=== PATIENT | male | born 1950 | race Caucasian/White ===

== ENCOUNTER 2016-06-05 13:12 | Outpatient (CLI) | payer MEDICARE, MEDICAID ==
[2015-09-27 22:23] VITALS: BP 124/77
[~2016-06-05 13:12] MED LIST: 0.9 % SODIUM CHLORIDE PF 10 ML VIAL IJ ONE; Lidocaine 1% 5ml(IM or SUTURE)(PAIN CLINIC) ONE; TRIAMCINOLONE ACETONID 40MG/ML VIAL ONE
--- NOTE | 2016-06-06 11:44 | HISTORY AND PHYSICAL REPORT ---
REFERRING PHYSICIAN: Dr. Ambrose Zelaya Dear Ambrose: HISTORY OF PRESENT ILLNESS: I had the opportunity of seeing Ivan Vega today as an outpatient at [facility]. Jose is a very nice 65-year-old white male with a greater than a 2-year history of left upper extremity pain and since March, the pain has become daily, severe, significant, and consistent with left-sided parascapular pain and then tingling and numbness which radiates into the 4th and 5th digit on the left hand on the C8 dermatomal distribution. He denies pain on the right side. He says that these symptoms are severe and significant and involve the entire left upper extremity and can be as severe as 10 over 10 on the visual analog scale. He has been taking tramadol for pain control. 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 His cervical MRI which was done on May 04 reveals severe degenerative disease and reversal of curvature of the cervical spine. There is a fusion between the C3-C4 and C5-C6 disk spaces with a C4-C5 disk protrusion. He has a grade 1 to 2 spondylolisthesis of C7-T1 and has stenosis at multiple levels of the cervical spine, most severe at C7-T1, which is consistent with his symptoms. PAST MEDICAL HISTORY: 1. History of vision problems. 2. Bruising easily. 3. Depression. 4. Anxiety. 5. Bipolar disorder. 6. BPH. PAST SURGICAL HISTORY: 1. Right total hip replacement in March 2016. 2. Cataracts removed and bilateral lens implanted. CURRENT DAILY MEDICATIONS: 1. Acyclovir 400 mg b.i.d. 2. Atorvastatin 20 mg daily. 3. Vitamin B1, 100 mg daily. 4. Celebrex daily. 5. Diclofenac 75 mg 2 daily p.r.n. 6. Duloxetine 60 mg once daily. 7. Epi-Pen p.r.n. 8. Hydroxyzine 25 mg b.i.d. 9. Lamictal 100 mg b.i.d. in conjunction with Lamictal 25 mg b.i.d. 10. Loratadine 10 mg p.r.n. 11. Primidone 50 mg b.i.d. 12. Propranolol 10 mg b.i.d. 13. Tramadol 50 mg p.r.n. ALLERGIES: He has no known drug allergies. SOCIAL HISTORY: He currently chews tobacco. He has a history of alcoholism. He quit drinking 10 years ago. He denies recreational drug use. He has been for the past 6 years. He has 2 children. He lives at home with his . He completed the 12th grade. He is currently employed. 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 He is currently disabled. FAMILY HISTORY: Father with liver cancer. REVIEW OF SYSTEMS: In the past month or so, he reports an irregular fast heartbeat, urinary incontinence, cough or cold, feeling anxious. Pain is worse with bending, sitting, cold, heat, driving, and touch. Pain is improved with lying down and standing. PHYSICAL EXAMINATION: General: This is a well-nourished, well-developed white male in no apparent distress. Vital Signs: BP: 110/70, P: 60, R: 20, oxygen saturation 98% on room air. HEENT: Pupils are equal, round, and reactive to light and accommodation. Extraocular movements intact. No facial droop. Neck: There is full range of motion of the cervical spine. No evidence of adenopathy. Thyroid is nontender, no enlarged. Carotids are without bruits. Chest: Clear to auscultation bilaterally. Normal. Chest excursion. Heart: Regular rate and rhythm without murmur. Abdomen: Benign. Normoactive bowel sounds. Motor/sensory: Intact in the upper and lower extremities. Moves all extremities freely. Strength is 5/5 and equal in the left biceps and triceps distribution. There is some mild weakness of senior communications engineer strength in the left arm as opposed to the right. Biceps tendon and triceps tendon and brachioradialis tendon and refluxes are all 2+ and equal. Back: There are normal cervical, thoracic and lumbar curvatures. There are negative sacroiliac joint findings bilaterally. No evidence of pain or tenderness over the facet joints. Negative piriformis bilaterally. Negative straight leg raise. No evidence of dermatomal weakness or numbness in the lower extremities. Bilateral negative femoral nerve stretch. Patellar tendons are 2+ and equal bilaterally. ASSESSMENT: Cervical radiculitis over C8 dermatomal distribution consistent with C7-T1 grade 1 to 2 spondylolisthesis and stenosis. PLAN: Plan today for T1-T2 thoracic epidural steroid injection under fluoroscopy. cc: Dr. Ambrose ARAUJO
--- NOTE | 2016-06-07 10:11 | THORACIC ESI FLUORO ---
NAME OF PROCEDURE: Left T1-T2 thoracic epidural steroid injection under fluoroscopic guidance. DESCRIPTION OF PROCEDURE: The risks and benefits were discussed with the patient including the risk of infection, bleeding, nerve injury, and headache, as well as the risks of steroid exposure causing hyperglycemia, hypertension, osteoporosis, or increased infectious risks. The patient understood these risks and agreed to proceed. Consent was obtained prior to the procedure. The patient was placed in the prone position on the fluoroscopy table with a pillow underneath the abdomen to afford anterior flexion of the thoracic spine. The low back was cleaned. A sterile drape was applied. An 18 gauge thin wall Tuohy epidural needle was advanced with normal saline loss of resistance technique and direct fluoroscopic guidance with a left paramedian approach at the T1-T2 level. On obtaining loss of resistance to normal saline, it was verified that there was no aspiration of CSF or blood. Furthermore, the needle tip location was verified with lateral and AP fluoroscopic views. Omnipaque 240 myelogram dye were injected through the epidural needle. The distribution of the dye was noted to be within the desired distribution within the thoracic epidural space. Triamcinolone acetate and 1% lidocaine was injected into the epidural space. The stylet was replaced in the needle and the needle was removed from the back. The patient tolerated the procedure well. The back was cleaned and a bandage was applied over the injection site. The patient was monitored for 20 minutes following the procedure. during this time the vital signs remained stable and the patient experienced no adverse sequelae. The patient was discharged in good condition. ASSESSMENT: Thoracic radiculitis. PLAN: Left T1-T2 thoracic epidural steroid injection under fluoroscopic guidance today. FOLLOW UP: He will follow up in 1 month. cc: Dr. Ambrose ARAUJO
== END 2016-06-05 13:15 ==
LOC: OUT 13:12
PROVIDERS: ATTEND Anesthesiology Pain Medicine
DX: M54.14 Radiculopathy, thoracic region (principal)
CPT/HCPCS: 99214; G0463; J3301; Q9966

== ENCOUNTER 2016-06-10 12:03 | Emergency (ER) | payer MEDICARE, MEDICAID ==
[2016-06-10 12:19] VITALS: BP 160/91
--- NOTE | 2016-06-10 13:13 | ED Physician Documentation ---
Skin Rash - HPI Stated Complaint: abcess right thigh Chief Complaint: Lower Extremity Problem Onset: days ago (3 days) Timing: still present Duration: worse Location: RLE (anterior lateral thigh) Quality: itchy Identified Cause?: No Further Comments: yes (patient developed a erythematous lesion to the thigh. no insect bite that he is aware of.) - ROS CONST: denies: fever, chills - PAST HX Past History: other (depression) Other History: none Surgeries/Procedures: No Immunizations: referred to PCP Allergies/Adverse Reactions: Allergies Allergy/AdvReac Type Severity Reaction Status Date / Time No Known Allergies Allergy Verified 06/10/16 12:13 Home Medications: Ambulatory Orders Medication Instructions Recorded Duloxetine HCl [Cymbalta] 2 tab PO D 08/14/15 Ondansetron HCl Rapdis [Zofran Odt] 4 mg PO Q6H PRN #10 tab.rapdis 09/27/15 Doxycycline Monohydrate [Mondoxyne 100 mg PO BID #14 capsule 06/10/16 Nl] - SOCIAL HX Smoking History: chew (1 can a day) Alcohol Use: none Drug Use: none - FAMILY HX Family History: none - VITAL SIGNS Vital Signs: Vital Signs Temp Pulse Resp BP Pulse Ox 98.4 F 77 18 160/91 97 06/10/16 13:35 06/10/16 13:35 06/10/16 13:35 06/10/16 13:35 06/10/16 13:35 - REVIEWED ASSESSMENTS Nursing Assessment Reviewed: Yes Vitals Reviewed: Yes Skin Rash Physical Exam - EXAM General Appearance: no acute distress, alert Skin: warm,dry, other (5cm area of erythema to the mid thigh with raised tender area of about 1 cm, nonflucuant) Symptoms: warmth, tenderness, swelling. No: lymphangitis Respiratory: no resp distress, chest non-tender, breath sounds normal. No: wheezes, rales, rhonchi CVS: reg. rate & rhythm, heart sounds nml Abdomen: non-tender, no organomegaly, nml bowel sounds, no distention Neuro/Psych: oriented x3, mood/affect nml Discharge Clincal Impression: Cellulitis, leg Qualifiers: Laterality: right Qualified Code(s): L03.115 - Cellulitis of right lower limb Prescriptions: Doxycycline Monohydrate [Mondoxyne Nl] 100 mg PO BID #14 capsule Referrals: Chuck Rice MD [Primary Care Provider] - 2 Days Additional Instructions: Use a warm compress to the area, take doxycycline twice a day for one week. Watch for a fever or chills. If symptoms get worse to return to the clinic for further treatment. Home Medications: Ambulatory Orders Duloxetine HCl [Cymbalta] 2 tab PO D 08/14/15 Ondansetron HCl Rapdis [Zofran Odt] 4 mg PO Q6H PRN #10 tab.rapdis 09/27/15 Doxycycline Monohydrate [Mondoxyne Nl] 100 mg PO BID #14 capsule 06/10/16 Condition: Stable Disposition: HOME, SELF-CARE Decision to Admit: NO Date of Decison to Admit: 06/10/16 Decision Time: 13:13
== END 2016-06-10 13:34 | disposition home or self-care (01) ==
LOC: ED 12:03
DX: L03.115 Cellulitis of right lower limb (principal); F17.220 Nicotine dependence, chewing tobacco, uncomplicated
CPT/HCPCS: 99283; 99284

== ENCOUNTER 2016-06-29 10:14 | Emergency (ER) | payer MEDICARE, OTHER ==
--- NOTE | 2016-06-29 10:23 | ED Physician Documentation ---
Neuro Symptoms - HISTORIAN Historian: patient, other (toddler caregiver) - HPI Chief Complaint: Neurological Deficits Last known Well Date: 06/29/16 Last Known Well Time: 09:45 Last known Well Code/Unknown Code: Known Severity: moderate Further Comments: yes (65 year old patient presents with left facial droop - see progress note) - CHARACTERS OF DEFICIT New Weakness: Lt facial Altered Sensation: Lt facial Decreased Ability: none Cognition is Usually: alert, oriented x3 Gait is Usually: walks w/o assistance Associated Symptoms: none - ROS MENTAL STATUS: none CVS/Resp Upper Extremity Problem: none GI/ DYSPNEA: none MS/SKIN/LYMPH: none Neuro/Psych: none - PAST HX Past History: other (CAD, CHF, HTN, AMI, HLD, ) Allergies/Adverse Reactions: Allergies Allergy/AdvReac Type Severity Reaction Status Date / Time No Known Allergies Allergy Verified 06/10/16 12:13 Home Medications: Ambulatory Orders Medication Instructions Recorded Duloxetine HCl [Cymbalta] 2 tab PO D 08/14/15 Ondansetron HCl Rapdis [Zofran Odt] 4 mg PO Q6H PRN #10 tab.rapdis 09/27/15 Doxycycline Monohydrate [Mondoxyne 100 mg PO BID #14 capsule 06/10/16 ] - FAMILY HX Family History: denies: none - SOCIAL HX Smoking History: non-smoker - VITAL SIGNS Vital Signs: Vital Signs Temp Pulse Resp BP Pulse Ox 77 160/91 99 06/29/16 10:47 06/10/16 13:35 06/29/16 10:47 - REVIEWED ASSESSMENTS Nursing Assessment Reviewed: Yes Vitals Reviewed: Yes Progress - Progress Progress: 65 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 Patient states he was at work and a co-worked noticed the facial droop at break at 0945. contacted and states patient was fine when he left for work at 0700- 0730. Patient rode bus to [employer] work shop. NIH score 3 Patient ate breakfast at 0945 [facility] in [place] [address] Reyes at [place], consulted for possible TPA treatment. Orders to transfer NOW for re-evaluation in the ER and possible intervention. - EKG/XRAY/CT EKG: rhythm (SR, rate 77) ED Results Lab/Radiology - Lab Results Lab Results: Lab Results 06/29/16 06/29/16 06/29/16 10:20 10:20 10:20 WBC 6.10 K/ul K/ul (4.00-12.00) RBC 4.82 M/ul M/ul (3.90-5.20) Hgb 14.6 g/dL g/dL (12.0-18.0) Hct 43.7 % % (37.0-53.0) MCV 90.6 fl fl (80.0-100.0) MCH 30.2 pg pg (28.0-34.0) MCHC 33.3 g/dL g/dL (30.0-36.0) RDW 14.6 % H % (11.3-14.3) Plt Count 293 K/mm3 K/mm3 (130-400) Neut % (Auto) 53.8 % % (39.0-79.0) Lymph % (Auto) 37.4 % % (16.0-50.0) [place] % (Auto) 2.4 % % (0.0-11.0) Eos % (Auto) 4.3 % % (0.0-6.8) Baso % (Auto) 0.5 (0.0-1.5) Neut # 3.3 # k/uL # k/uL (1.4-7.7) Lymph # 2.3 # k/uL # k/uL (0.6-4.0) [place] # 0.2 # k/uL # k/uL (0.0-0.9) Eos # 0.3 # k/uL # k/uL (0.0-0.6) Baso # 0.0 # k/uL # k/uL (0.0-0.5) Reactive Lymphs % 1.6 % % (0.0-5.0) Reactive Lymphs # 0.1 # k/uL # k/uL (0.0-0.8) PT 10.0 Seconds Seconds (9.7-11.5) INR 0.9 (0.9-1.1) APTT 25.2 Seconds Seconds (24.5-32.8) Sodium 138 mmol/L mmol/L (136-145) Potassium 4.1 mmol/L mmol/L (3.5-5.0) Chloride 103 mmol/L mmol/L (98-110) Carbon Dioxide 32 mmol/L mmol/L (20-32) BUN 22 mg/dL mg/dL (10-26) Creatinine 1.1 mg/dL mg/dL (0.4-1.5) Estimated Creat Clear 83 Est GFR ( Amer) > 60 (60 - ) Est GFR (Non-Af Amer) > 60 (60 - ) Glucose 146 mg/dL H mg/dL (70-99) Calcium 9.4 mg/dL mg/dL (8.5-10.5) Total Bilirubin 0.4 mg/dL mg/dL (0.2-1.2) AST 23 U/L U/L (0-41) ALT 30 U/L U/L (0-45) Alkaline Phosphatase 119 U/L H U/L (46-116) Creatine Kinase 95 U/L U/L (0-225) Total Protein 7.2 g/dL g/dL (6.0-8.5) Albumin 4.3 g/dL g/dL (3.0-5.5) - Radiology Radiology Impressions: CT brain noncontrast CLINICAL HISTORY: LEFT FACIAL DROOP (Hx) / LEFT FACIAL DROOP (DICOM Hx) TECHNIQUE: 5 mm contiguous axial images of the brain, noncontrast. FINDINGS: There is no evidence of intracranial mass effect, hemorrhage, or acute hydrocephalus. The lateral ventricles are symmetrical and the 4th ventricle is midline without shift. No acute brain parenchymal changes or extra-axial fluid collections are identified. The posterior fossa contents are within normal limits. The calvarium is intact. IMPRESSION: No acute intracranial process. - Orders Orders: ED Orders Category Date Time Status Continuous EKG monitoring Q30M Care 06/29/16 10:17 Active Continuous Pulse Oximetry Q30M Care 06/29/16 10:[address] Saline Lock/IV NOW Care 06/29/16 10:[address] BRAIN W/O CONTRAST Stat Exams 06/29/16 Ordered CBC/PLATELET/DIFF Stat Lab 06/29/16 10:20 Completed CMP Stat Lab 06/29/16 10:20 Completed CREATINE KINASE Stat Lab 06/29/16 10:20 Completed PT-INR Stat Lab 06/29/16 10:20 Completed PTT Stat Lab 06/29/16 10:20 Completed UA W/MICRO IF INDICATED Stat Lab 06/29/16 10:17 Ordered Oxygen Daily Oxygen 06/29/16 10:30 Ordered EKG WITH COMPARISON Stat Ther 06/29/16 10:17 Ordered Neuro Symptoms Physical Exam - Physical Exam General Appearance: moderate distress HEENT: no apparent trauma, EOM's intact, PERRL, ENT inspection nml, pharynx nml , airway intact, oral exam nml Neuro/Psych: alert, mood/affect nml, other (left facial droop, NIH score 3, tongue deviation to right; oriented to person and place) Cranial Nerves: facial palsy (left) Cerebellar: nml as tested, nml gait Pheripheral Exam: motor nml, sensation nml, reflexes nml Neck: normal inspection Respiratory: no resp distress, chest non-tender, breath sounds normal CVS: reg rate & rhythm, heart sounds normal, equal pulses, no murmur, no gallop , PMI nml, no JVD, no friction rub, 24 Abdomen: non-tender, no distention, no organomegaly Skin: color nml, no rash, nml palp., dry Extremities: non-tender, normal range of motion, no evidence of injury, no edema , J, AIRCRAFT REFUELER Discharge Clincal Impression: Stroke Qualifiers: CVA mechanism: unspecified Qualified Code(s): I63.9 - Cerebral infarction, unspecified Home Medications: Ambulatory Orders Duloxetine HCl [Cymbalta] 2 tab PO D 08/14/15 Ondansetron HCl Rapdis [Zofran Odt] 4 mg PO Q6H PRN #10 tab.rapdis 09/27/15 Doxycycline Monohydrate [Mondoxyne Nl] 100 mg PO BID #14 capsule 06/10/16 Condition: Critical Disposition: 02 XFER SHT-TRM HOSP Decision to Admit: NO Decision Time: 11:01
[2016-06-29 10:24] LABS: BASOPHILS % 0.5 (0.0-1.5); EOSINOPHILS % 4.3 % (0.0-6.8); LYMPHOCYTES # 2.3 # k/uL (0.6-4.0); MEAN CORPUSCULAR HEMOGLOBIN 30.2 pg (28.0-34.0); MONOCYTES # 0.2 # k/uL (0.0-0.9); MONOCYTES % 2.4 % (0.0-11.0); NEUTROPHILS # 3.3 # k/uL (1.4-7.7)
[2016-06-29] MEDS ORDERED: 0.9 % SODIUM CHLORIDE 1,000 ML IV SCH (10:45)
[2016-06-29 10:46] LABS: eGFR (African) > 60; eGFR (Non-African) > 60
[2016-06-29] MEDS ORDERED: 0.9 % SODIUM CHLORIDE 1,000 ML IV ONE (10:56)
[2016-06-29 11:09] VITALS: BP 135/83
--- NOTE | 2016-06-29 18:14 | Diagnostic Imaging Report ---
[facility] [address] [facility] [address] [address] Report Submission Date: Jun 29, 2016 10:44:33 AM AGENT SPA DESK Patient Study Name: ROSETTA MACKEY Date: Jun 29, 2016 10:19:07 AM AGENT SPA DESK Modality Type: CT\SR Gender: M Description: CT BRAIN W/O CONTRAST : 54 Institution: [facility] Physician KIKE KYLE (SNOWBOARDER) - ER CT brain noncontrast CLINICAL HISTORY: LEFT FACIAL DROOP (Hx) / LEFT FACIAL DROOP (DICOM Hx) TECHNIQUE: 5 mm contiguous axial images of the brain, noncontrast. FINDINGS: There is no evidence of intracranial mass effect, hemorrhage, or acute hydrocephalus. The lateral ventricles are symmetrical and the 4th ventricle is midline without shift. No acute brain parenchymal changes or extra-axial fluid collections are identified. The posterior fossa contents are within normal limits. The calvarium is intact. IMPRESSION: No acute intracranial process. Electronically signed on Jun 29, 2016 10:44:33 AM AGENT SPA DESK by: Dejon ARAUJO
== END 2016-06-29 11:00 | disposition short-term general hospital (02) ==
LOC: ED 10:14
DX: I63.9 Cerebral infarction, unspecified (principal)
CPT/HCPCS: 70450; 80053; 82550; 85025; 85610; 85730; J7030; 96360; 99283; S1016

== ENCOUNTER 2016-07-10 12:34 | Outpatient (CLI) | payer MEDICARE, OTHER ==
--- NOTE | 2016-07-11 09:06 | PAIN CLINIC PROGRESS NOTES ---
REFERRING PHYSICIAN: Dr. Chuck Rice REASON FOR VISIT: Mr. Vega follows up with me status post a cervical ДМИТРИЙ for left upper extremity radiculitis. He says that his symptoms have completely resolved. He still has some tingling in his fingers. He denies pain, numbness, or weakness in his arm, forearm, wrist, or hand. He has no limitations. PLAN: At this point, I have recommended that he stay on the nonsteroidal antiinflammatory and I will follow him up if his symptoms should worsen or reoccur. Thank you very much for allowing me to take part in the care of this nice gentleman. cc: Dr. Chuck ARAUJO
== END 2016-07-10 12:35 ==
LOC: OUT 12:34
PROVIDERS: ATTEND Anesthesiology Pain Medicine
DX: M54.12 Radiculopathy, cervical region (principal)
CPT/HCPCS: 99214; G0463

== ENCOUNTER 2016-07-20 19:49 | Emergency (ER) | payer MEDICARE, OTHER ==
[2016-07-20] MEDS: Lidocaine 1% 5ml(IM or SUTURE)(PAIN CLINIC) IJ ONE (20:22)
[2016-07-20] MEDS: cefTRIAXone SODIUM 1 GM VIAL IM ONE (20:22)
--- NOTE | 2016-07-20 20:37 | ED Physician Documentation ---
Skin Rash - HISTORIAN Historian: patient - HPI Stated Complaint: knots under R arm Chief Complaint: Skin Rash Additional Information: knots popped up under right axilla over last 24 hours Front/Back of Body, Lg (Martin): 1 - 2 carbuncles Onset: days ago (1) Timing: still present Duration: worse Location: R axillary Quality: painful Identified Cause?: No Where: home Context: Medication Exposure: none Context: Food Exposure: none Context: Other Exposure: denies: bee sting, wasp sting, ant bite, spider bite, poison karine, poison oak, infectious illness, soap Further Comments: no - ROS CONST: none CVS/RESP: none EYES/ENT: none GI/: none MS/SKIN/LYMPH: none NEURO/PSYCH: none - PAST HX Past History: hypertension Other History: other (ortho) Surgeries/Procedures: No Immunizations: referred to PCP Allergies/Adverse Reactions: Allergies Allergy/AdvReac Type Severity Reaction Status Date / Time No Known Allergies Allergy Verified 07/20/16 20:05 Home Medications: Ambulatory Orders Medication Instructions Recorded Duloxetine HCl [Cymbalta] 2 tab PO D 08/14/15 Ondansetron HCl Rapdis [Zofran Odt] 4 mg PO Q6H PRN #10 tab.rapdis 09/27/15 Doxycycline Monohydrate [Mondoxyne 100 mg PO BID #14 capsule 06/10/16 ] - SOCIAL HX Smoking History: cigarettes Alcohol Use: none Drug Use: none - FAMILY HX Family History: none - VITAL SIGNS Vital Signs: Vital Signs Temp Pulse Resp BP Pulse Ox 98.4 F 80 18 135/83 98 07/20/16 20:34 07/20/16 20:34 07/20/16 20:34 06/29/16 11:00 07/20/16 20:34 - REVIEWED ASSESSMENTS Nursing Assessment Reviewed: Yes Vitals Reviewed: Yes Progress - Results/Orders Results/Orders: no testing ordered - Progress Progress: pt. given 1 gram rocephin im in er Critical Care Note - Critical Care Note Total Time (mins): 0 ED Results Lab/Radiology - Lab Results Lab Results: none ordered - Radiology Radiology Impressions: none ordered - Orders Orders: ED Orders Category Date Time Status Lidocaine 1% 5ml(IM or SUTURE) [Xylocaine] Med 07/20/16 20:20 Once 50 mg IJ NOW ONE cefTRIAXone SODIUM [Rocephin] Med 07/20/16 20:20 Once 1 gm IM NOW ONE Skin Rash Physical Exam - EXAM General Appearance: alert, mild distress Skin: warm,dry, other (2 carbuncles in right axilla) Location: other (right axilla) Character: papular Symptoms: warmth, tenderness Extremities: non-tender, nml ROM EENT: eyes nml inspection, lips nml, gums nml, pharynx nml Neck: trachea midline, no swelling Respiratory: no resp distress, chest non-tender, breath sounds normal CVS: reg. rate & rhythm, heart sounds nml Abdomen: non-tender, no organomegaly, nml bowel sounds, no distention Neuro/Psych: oriented x3, CN's nml as tested, motor nml, sensation nml, mood/ affect nml Discharge Clincal Impression: Carbuncle Referrals: Chuck Rice MD [Primary Care Provider] - 2 Days Home Medications: Ambulatory Orders Duloxetine HCl [Cymbalta] 2 tab PO D 08/14/15 Ondansetron HCl Rapdis [Zofran Odt] 4 mg PO Q6H PRN #10 tab.rapdis 09/27/15 Doxycycline Monohydrate [Mondoxyne Nl] 100 mg PO BID #14 capsule 06/10/16 Comments: discharged with scripts for prednisone taper 60 mg - 10 mg over 6 days, Bactrim DS 1 p.o. bid #20 Condition: Stable Disposition: 01 HOME, SELF-CARE Decision to Admit: NO Decision Time: 20:30
== END 2016-07-20 20:29 | disposition home or self-care (01) ==
LOC: ED 19:49
DX: L02.233 Carbuncle of chest wall (principal)
CPT/HCPCS: 96372; 99283; J0696

== ENCOUNTER 2016-10-18 13:53 | Outpatient (CLI) | payer MEDICARE, OTHER ==
[2016-10-18 14:24] LABS: APPEARANCE,URINE Clear (CLEAR); COLOR,URINE Yellow (YELLOW); OCCULT BLOOD,URINE Negative (NEGATIVE)
--- NOTE | 2016-10-18 14:48 | Diagnostic Imaging Report ---
MIKE HARRIS [facility] [address] [facility].[address] [address] Report Submission Date: Oct 18, 2016 2:30:35 PM CDT Patient Study Name: ROSETTA MACKEY Date: Oct 18, 2016 2:00:34 PM CDT Modality Type: CR Gender: M Description: SPINE : 54 Institution: [facility] Physician: MIKE HARRIS Examination: Plain film lumbar spine History: Back discomfort Findings: 3 views of the lumbar spine demonstrates reversal of the normal curvature. No anterior compression. Anterior and lateral osteophyte formation. Disc space narrowing. Curvature to the left on the anterior posterior film. No prevertebral regularity. Impression: Extensive degenerative changes. No compression fracture. Electronically signed on Oct 18, 2016 2:30:35 PM CDT by: Mark ARAUJO
== END 2016-10-18 13:54 ==
LOC: RAD 13:53
PROVIDERS: ATTEND Family Medicine
DX: M54.5 Low back pain (principal); S30.1XXA Contusion of abdominal wall, initial encounter
CPT/HCPCS: 72100; 81002

== ENCOUNTER 2017-01-03 09:49 | Outpatient (CLI) | payer OTHER ==
[2017-01-03 10:08] LABS: BASOPHILS % 0.8 (0.0-1.5); EOSINOPHILS % 7.5 % (0.0-6.8); MEAN CORPUSCULAR HEMOGLOBIN 31.9 pg (28.0-34.0); MEAN CORPUSCULAR VOLUME 91.8 fl (80.0-100.0); MONOCYTES % 4.4 % (0.0-11.0); NEUTROPHILS # 4.8 # k/uL (1.4-7.7)
[2017-01-03 10:33] LABS: eGFR (African) > 60; eGFR (Non-African) > 60
== END 2017-01-03 09:50 ==
LOC: LAB 09:49
PROVIDERS: ATTEND Family Medicine
DX: I10 Essential (primary) hypertension (principal); R41.3 Other amnesia; Z79.899 Other long term (current) drug therapy
CPT/HCPCS: 36415; 80053; 80171; 82607; 82746; 84443; 85025

== ENCOUNTER 2017-01-04 17:07 | Outpatient (CLI) | payer MEDICARE, OTHER | END 2017-01-04 17:10 | LOC: LAB 17:07 | PROVIDERS: ATTEND Physician Assistant | DX: R07.9 Chest pain, unspecified (principal) | CPT/HCPCS: 36415; 84484 ==

== ENCOUNTER 2017-01-23 13:50 | Emergency (ER) | payer SELFPAY ==
--- NOTE | 2017-01-23 14:11 | ED Physician Documentation ---
Altered Mental Status - HISTORIAN Historian: patient, other (family friend ) - HPI Stated Complaint: fall Chief Complaint: Fall Onset: other (few months has been falling more than normal ) Duration: other (no symptoms before falls ) Last known Well Date: 01/23/17 Last Known Well Time: 13:00 Last known Well Code/Unknown Code: Unknown (he fell today at 1300 and hit his head ) Character of Altered Mental Status: none Context: none Cognition is Usually: alert, oriented x3 Gait is Usually: walks w/o assistance Associated Symptoms: none Further Comments: no - ROS EYES/ENT: none CVS/RESP: none GI/: none MS/SKIN/LYMPH: none - PAST HX Past History: none Other History: none Surgeries/Procedures: none - SOCIAL HX Smoking History: cigarettes Alcohol Use: none Drug Use: none - FAMILY HX Family History: none - REVIEWED ASSESSMENTS Nursing Assessment Reviewed: Yes Vitals Reviewed: Yes <Krysten Castro - Last Filed: 01/23/17 15:47> - SOCIAL HX Smoking History: chew <Chuck Rice - Last Filed: 01/23/17 19:39> - PAST HX Allergies/Adverse Reactions: Allergies Allergy/AdvReac Type Severity Reaction Status Date / Time No Known Allergies Allergy Verified 07/20/16 20:05 Home Medications: Ambulatory Orders Medication Instructions Recorded Doxycycline Monohydrate [Mondoxyne 100 mg PO BID #14 capsule 06/10/16 ] - VITAL SIGNS Vital Signs: Vital Signs Temp Pulse Resp BP Pulse Ox 97.9 F 66 18 161/79 95 01/23/17 16:10 01/23/17 16:10 01/23/17 16:10 01/23/17 16:10 01/23/17 16:10 ED Results Lab/Radiology <Krysten Castro - Last Filed: 01/23/17 15:47> <Chuck Rice - Last Filed: 01/23/17 19:39> - Lab Results Lab Results: Lab Results 01/23/17 01/23/17 01/23/17 15:30 14:50 14:50 WBC 6.90 K/ul K/ul (4.00-12.00) RBC 4.58 M/ul M/ul (3.90-5.20) Hgb 14.1 g/dL g/dL (12.0-18.0) Hct 42.0 % % (37.0-53.0) MCV 91.8 fl fl (80.0-100.0) MCH 30.8 pg pg (28.0-34.0) MCHC 33.5 g/dL g/dL (30.0-36.0) RDW 13.2 % % (11.3-14.3) Plt Count 265 K/mm3 K/mm3 (130-400) Neut % (Auto) 52.9 % % (39.0-79.0) Lymph % (Auto) 30.9 % % (16.0-50.0) [place] % (Auto) 5.4 % % (0.0-11.0) Eos % (Auto) 8.5 % H % (0.0-6.8) Baso % (Auto) 1.0 (0.0-1.5) Neut # (Auto) 3.7 # k/uL # k/uL (1.4-7.7) Lymph # (Auto) 2.1 # k/uL # k/uL (0.6-4.0) [place] # (Auto) 0.4 # k/uL # k/uL (0.0-0.9) Eos # (Auto) 0.6 # k/uL # k/uL (0.0-0.6) Baso # (Auto) 0.1 # k/uL # k/uL (0.0-0.5) Reactive Lymphs % 1.3 % % (0.0-5.0) Reactive Lymphs # 0.1 # k/uL # k/uL (0.0-0.8) Sodium 138 mmol/L mmol/L (136-145) Potassium 4.1 mmol/L mmol/L (3.5-5.0) Chloride 102 mmol/L mmol/L (98-110) Carbon Dioxide 30 mmol/L mmol/L (20-32) BUN 12 mg/dL mg/dL (10-26) Creatinine 1.1 mg/dL mg/dL (0.4-1.5) Estimated Creat Clear 79 Est GFR ( Amer) > 60 (60 - ) Est GFR (Non-Af Amer) > 60 (60 - ) Glucose 94 mg/dL mg/dL (70-99) Calcium 10.2 mg/dL mg/dL (8.5-10.5) Urine Color Yellow (YELLOW) Urine Appearance Clear (CLEAR) Urine pH 6.5 (5.0 - 8.0) Ur Specific [place] 1.015 (1.010-1.030) Urine Protein Negative mg/dL mg/dL (NEGATIVE) Urine Ketones Negative mg/dL mg/dL (NEGATIVE) Urine Occult Blood Negative (NEGATIVE) Urine Nitrite Negative (NEGATIVE) Urine Bilirubin Negative (NEGATIVE) Urine Urobilinogen 0.2 Eu Eu (0.2-1.0) Ur Leukocyte Esterase Negative (NEGATIVE) Urine Glucose Negative mg/dL mg/dL (NEGATIVE) - Radiology Radiology Impressions: Examination: CT head without contrast History: Fall Comparison exam: 29 June 2016 Technique: Noncontrast head CT protocol. Findings: Ventricles and sulci are appropriate for patient age. Cerebrocerebellar parenchyma demonstrates normal attenuation. No evidence for parenchymal hemorrhage. No evidence for mass or mass effect. No midline shift. No extra axial fluid collections. Partial visualization of the paranasal sinuses demonstrates opacification of a hypoplastic right maxillary sinus. Mastoid air cells, orbits, skull and scalp without gross irregularity. Impression: Stable examination. No acute parenchymal process. No hemorrhage. Electronically signed on Jan 23, 2017 3:20:19 PM CDT by: Mark Saini (CastroKrysten hsu Dee) - Orders Orders: ED Orders Category Date Time Status IV Started NOW Care 01/23/17 14:[address] BRAIN W/O CONTRAST Stat Exams 01/23/17 14:16 Completed BMP [BMP] Routine Lab 01/23/17 14:50 Completed CBC/PLATELET/DIFF Routine Lab 01/23/17 14:50 Completed UA W/MICRO IF INDICATED Routine Lab 01/23/17 15:30 Completed 0.9 % Sodium Chloride [Normal Saline] 1,000 ml Med 01/23/17 14:17 Discontinued IV Q2H EKG WITH COMPARISON Stat Ther 01/23/17 Completed Altered Mental Status Physical - Physical Exam General Appearance: no acute distress Neuro/Psych: none alert, oriented x3, no evidence of acute CVA, eyes open. No: abnml respond to command, disoriented, speech abnml nml as tested Cerebellar Exam: nml as tested Peripheral Exam: motor nml HEENT: ISAEL Neck: normal inspection Respiratory: no resp distress CVS: reg rate & rhythm, heart sounds normal Abdomen: non-tender Skin: warm/dry Extremities: non-tender <Krysten Castro - Last Filed: 01/23/17 15:47> Discharge Decision to Admit: NO Date of Decison to Admit: 01/23/17 Decision Time: 15:48 <Krysten Castro - Last Filed: 01/23/17 15:47> <Chuck Rice - Last Filed: 01/23/17 19:39> Clincal Impression: Fall Qualifiers: Encounter type: initial encounter Qualified Code(s): W19.XXXA - Unspecified fall, initial encounter Referrals: Chuck Rice MD [Primary Care Provider] - 2 Days Additional Instructions: do not work around dangerous machinery follow up with PCP for fall work up Home Medications: Ambulatory Orders Doxycycline Monohydrate [Mondoxyne Nl] 100 mg PO BID #14 capsule 06/10/16 Comments: I have reviewed clinical impression and treatment plan and agree wit it as outlined. (Chuck Rice) Condition: Stable Disposition: 01 HOME, SELF-CARE
[2017-01-23] MEDS ORDERED: 0.9 % SODIUM CHLORIDE 1,000 ML IV ONE (14:17)
[2017-01-23 14:53] LABS: EOSINOPHILS % 8.5 % (0.0-6.8); MEAN CORPUSCULAR HEMOGLOBIN 30.8 pg (28.0-34.0); MEAN CORPUSCULAR VOLUME 91.8 fl (80.0-100.0); MONOCYTES % 5.4 % (0.0-11.0); NEUTROPHILS # 3.7 # k/uL (1.4-7.7)
[2017-01-23 15:11] LABS: eGFR (African) > 60; eGFR (Non-African) > 60
--- NOTE | 2017-01-23 15:23 | Diagnostic Imaging Report ---
OSCAR BUTLER [facility] [address] [facility] [address] [place], [place]. [address] Report Submission Date: Jan 23, 2017 3:20:19 PM CDT Patient Study Name: ROSETTA MACKEY Date: Jan 23, 2017 2:56:12 PM CDT Modality Type: CT\SR Gender: M Description: CT BRAIN W/O CONTRAST : 54 Institution: [facility] Physician: OSCAR BUTLER Examination: CT head without contrast History: Fall Comparison exam: 29 June 2016 Technique: Noncontrast head CT protocol. Findings: Ventricles and sulci are appropriate for patient age. Cerebrocerebellar parenchyma demonstrates normal attenuation. No evidence for parenchymal hemorrhage. No evidence for mass or mass effect. No midline shift. No extra axial fluid collections. Partial visualization of the paranasal sinuses demonstrates opacification of a hypoplastic right maxillary sinus. Mastoid air cells, orbits, skull and scalp without gross irregularity. Impression: Stable examination. No acute parenchymal process. No hemorrhage. Electronically signed on Jan 23, 2017 3:20:19 PM CDT by: Mark ARAUJO
[2017-01-23 15:33] LABS: APPEARANCE,URINE Clear (CLEAR); COLOR,URINE Yellow (YELLOW); OCCULT BLOOD,URINE Negative (NEGATIVE); PH URINE 6.5 (5.0 - 8.0); UROBILINOGEN URINE 0.2 Eu (0.2-1.0)
[2017-01-23 16:14] VITALS: BP 161/79
== END 2017-01-23 15:55 | disposition home or self-care (01) ==
LOC: ED 13:50
DX: W19.XXXA Unspecified fall, initial encounter (principal); Y93.9 Activity, unspecified; Y99.9 Unspecified external cause status
CPT/HCPCS: 70450; 80048; 81002; 85025; 93005; J7030; 96360; 99283; S1016

== ENCOUNTER 2017-06-01 17:22 | Emergency (ER) | payer MEDICARE, OTHER ==
--- NOTE | 2017-06-01 17:25 | ED Physician Documentation ---
General Adult - HISTORIAN Historian: patient - HPI Stated Complaint: Cellulitis Chief Complaint: Skin Rash Onset: days ago (4) Timing: still present Severity: mild Further Comments: yes (He was started on antibitoic from [facility] on 05.29.17 and he is concerned if area is worse. No fever) Last known Well Code/Unknown Code: Unknown - ROS CONST: no problems - PAST HX Past History: hypertension, other (Biploar ) Surgeries/Procedures: other Immunizations: referred to PCP Allergies/Adverse Reactions: Allergies Allergy/AdvReac Type Severity Reaction Status Date / Time No Known Allergies Allergy Verified 07/20/16 20:05 - SOCIAL HX Smoking History: cigarettes Alcohol Use: none Drug Use: none - FAMILY HX Family History: No - VITAL SIGNS Vital Signs: Vital Signs Temp Pulse Resp BP Pulse Ox 161/79 01/23/17 16:10 - REVIEWED ASSESSMENTS Nursing Assessment Reviewed: Yes Vitals Reviewed: Yes General Adult Physical Exam - PHYSICAL EXAM GENERAL APPEARANCE: no distress EENT: eye inspection normal NECK: normal inspection RESPIRATORY: no resp distress, chest non-tender, breath sounds normal CVS: reg rate & rhythm, heart sounds normal SKIN: other (abcess area on left forearm raised red green/yellow crusted center approx 3 x 4 cm no streatking. Small red raised area right inner thigh and small raised red area on left axilla ) EXTREMITIES: non-tender NEURO: oriented X3, CN's nml as tested Discharge Clincal Impression: Cellulitis Qualifiers: Site of cellulitis: extremity Site of cellulitis of extremity: upper extremity Laterality: left Qualified Code(s): L03.114 - Cellulitis of left upper limb Referrals: Ambrose Zelaya MD [Primary Care Provider] - 2 Days Additional Instructions: Keep area clean and dry Keep on meds DO NOT SHAVE THE AREA good handwashing Return for increase in redness of fever OTC meds if needed for pain Condition: Stable Disposition: 01 HOME, SELF-CARE Decision to Admit: NO Date of Decison to Admit: 06/01/17 Decision Time: 17:42
[2017-06-01 17:40] VITALS: BP 136/83
== END 2017-06-01 17:44 | disposition home or self-care (01) ==
LOC: ED 17:22
DX: L03.114 Cellulitis of left upper limb (principal)
CPT/HCPCS: 99282

== ENCOUNTER 2017-06-04 16:03 | Emergency (ER) | payer MEDICARE, OTHER ==
[2017-06-04] MEDS ORDERED: DIPH,PERTUSS(ACELL),TET VAC/PF 0.5 ML DISP.SYRIN IM ONE (16:18)
--- NOTE | 2017-06-04 16:42 | ED Physician Documentation ---
General Adult - HISTORIAN Historian: patient - HPI Stated Complaint: fall-headache, dizzy Chief Complaint: General Adult Timing: still present Severity: moderate Further Comments: yes (Pt is a 66 yo male, who works for [employer] , who fell backwards from a ladder and struck the back of his head. Pt was 2 or 3 rungs up the ladder when he fell. Pt denies LOC, neck pain. He said he had a headache following the fall. Friend/family member says he now appears to be unsteady on his feet. Pt has a scalp abrasion in the occiput. Tetanus is not utd.) - ROS CONST: no problems EYES/ENT: none CVS/RESP: none GI/: none MS/SKIN/LYMPH: other (scalp abrasion) NEURO/PSYCH: headache (mild) - PAST HX Past History: other (bipolar d/o) Surgeries/Procedures: other (ortho) Allergies/Adverse Reactions: Allergies Allergy/AdvReac Type Severity Reaction Status Date / Time No Known Allergies Allergy Verified 06/04/17 16:16 - SOCIAL HX Smoking History: non-smoker - FAMILY HX Family History: No - VITAL SIGNS Vital Signs: Vital Signs Temp Pulse Resp BP Pulse Ox 97.3 F L 84 18 141/89 96 06/04/17 16:11 06/04/17 16:11 06/04/17 16:11 06/04/17 16:11 06/04/17 16:11 - REVIEWED ASSESSMENTS Nursing Assessment Reviewed: Yes Vitals Reviewed: Yes Progress - Progress Progress: CT head w/o contrast: Stable age related changes. No acute parenchymal process. No hemorrhage. Tdap 0.5 ml IM ED Results Lab/Radiology - Orders Orders: ED Orders Category Date Time Status CT BRAIN W/O CONTRAST Stat Exams 06/04/17 Ordered Diph,Pertuss(Acell),Tet Vac/Pf [Adacel] Med 06/04/17 16:18 Discontinued 0.5 ml IM .ONCE ONE General Adult Physical Exam - PHYSICAL EXAM GENERAL APPEARANCE: mild distress EENT: eye inspection normal, ENT inspection normal, pharynx normal NECK: normal inspection, supple RESPIRATORY: no resp distress, chest non-tender, breath sounds normal CVS: reg rate & rhythm, heart sounds normal BACK: normal inspection, no CVA tenderness SKIN: other (superficial scalp abrasion over occiput) EXTREMITIES: non-tender, normal range of motion, no evidence of injury NEURO: oriented X3, CN's nml as tested, motor nml, sensation nml Discharge Clincal Impression: Head trauma Qualifiers: Encounter type: initial encounter Qualified Code(s): S09.90XA - Unspecified injury of head, initial encounter Referrals: Ambrose Zelaya MD [Primary Care Provider] - Condition: Good Disposition: 01 HOME, SELF-CARE Decision to Admit: NO Decision Time: 17:19
--- NOTE | 2017-06-04 17:09 | Diagnostic Imaging Report ---
[facility] [address] [facility] [address] [place], [place]. [address] Report Submission Date: Jun 04, 2017 4:52:33 PM BIOMEDICAL EQUIPMENT TECH Patient Study Name: ROSETTA MACKEY Date: Jun 04, 2017 4:25:01 PM BIOMEDICAL EQUIPMENT TECH Modality Type: CT\SR Gender: M Description: CT BRAIN W/O CONTRAST : 54 Institution: [facility] Physician: LANA HERNANDEZ Examination: CT head without contrast History: Fall Comparison exam: 23 January 2017 Technique: Noncontrast head CT protocol. Findings: Ventricles and sulci are mildly prominent, though stable. Cerebrocerebellar parenchyma demonstrates periventricular low attenuation consistent with small vessel disease. No evidence for parenchymal hemorrhage. No evidence for mass or mass effect. No midline shift. No extra axial fluid collections. Partial visualization of the paranasal sinuses, mastoid air cells, orbits, skull and scalp without gross irregularity. Impression: Stable age related changes. No acute parenchymal process. No hemorrhage. Electronically signed on Jun 04, 2017 4:52:33 PM BIOMEDICAL EQUIPMENT TECH by: Mark ARAUJO
[2017-06-04 17:24] VITALS: BP 135/84
== END 2017-06-04 17:23 | disposition home or self-care (01) ==
LOC: ED 16:03
DX: S09.90XA Unspecified injury of head, initial encounter (principal); W11.XXXA Fall on and from ladder, initial encounter; Y93.89 Activity, other specified; Y92.89 Other specified places as the place of occurrence of the external cause; Y99.0 Civilian activity done for income or pay
CPT/HCPCS: 70450; 90715; 99283

== ENCOUNTER 2017-06-22 10:16 | Emergency (ER) | payer MEDICARE, OTHER ==
[2017-06-22 11:24] LABS: BASOPHILS % 0.8 (0.0-1.5); EOSINOPHILS % 5.5 % (0.0-6.8); MEAN CORPUSCULAR HEMOGLOBIN 31.4 pg (28.0-34.0); MEAN CORPUSCULAR VOLUME 94.2 fl (80.0-100.0); NEUTROPHILS # 3.1 # k/uL (1.4-7.7)
--- NOTE | 2017-06-22 12:34 | ED Physician Documentation ---
Upper Respiratory Symptoms - HISTORIAN Historian: patient - HPI Stated Complaint: Cough/Vomiting Chief Complaint: Cough/ Upper Respiratory Additional Information: x 1week Onset: days ago (7) Duration: sudden-Onset Context: denies: recent foreign travel, insect bite(s), tick(s), recent chemotherapy, multiple patients, same sx Severity: moderate Associated Symptoms: runny nose, other (coughs to point of vomting) Worsened by Deep Breath: No Further Comments: no - ROS CONST/EYES: denies: weakness, eye redness, eye itching CVS/RESP: other (nonprod. cough) LYMPH: denies: leg swelling, rash, swollen glands, ankle swelling GI/: vomiting (sometimes secondary to cough) NEURO/PSYCH: denies: fainting, dizziness, confusion, anxiety, depression MS/SKIN: denies: joint pain, muscle aches, rash - PAST HX Lung Disease: none PE Risk Factors: none Other History: other (anxiety, depression) Surgeries/Procedures: none Immunizations: referred to PCP Allergies/Adverse Reactions: Allergies Allergy/AdvReac Type Severity Reaction Status Date / Time No Known Allergies Allergy Verified 06/22/17 10:39 - SOCIAL HX Smoking History: chew Alcohol Use: none Drug Use: none - FAMILY HX Family History: no significant history - VITAL SIGNS Vital Signs: Vital Signs Temp Pulse Resp BP Pulse Ox 97.1 F L 100 H 22 127/76 92 06/22/17 10:20 06/22/17 10:20 06/22/17 10:20 06/22/17 10:20 06/22/17 10:20 - REVIEWED ASSESSMENTS Nursing Assessment Reviewed: Yes Vitals Reviewed: Yes Progress - Results/Orders Results/Orders: cbc, cxr ordered - Progress Progress: pt. given 1 gram rocephin IM in ER Critical Care Note - Critical Care Note Total Time (mins): 0 ED Results Lab/Radiology - Lab Results Lab Results: Lab Results 06/22/17 11:10 WBC 5.10 K/ul K/ul (4.00-12.00) RBC 4.34 M/ul M/ul (3.90-5.20) Hgb 13.6 g/dL g/dL (12.0-18.0) Hct 40.9 % % (37.0-53.0) MCV 94.2 fl fl (80.0-100.0) MCH 31.4 pg pg (28.0-34.0) MCHC 33.3 g/dL g/dL (30.0-36.0) RDW 13.0 % % (11.3-14.3) Plt Count 222 K/mm3 K/mm3 (130-400) Neut % (Auto) 61.3 % % (39.0-79.0) Lymph % (Auto) 25.1 % % (16.0-50.0) [place] % (Auto) 5.0 % % (0.0-11.0) Eos % (Auto) 5.5 % % (0.0-6.8) Baso % (Auto) 0.8 (0.0-1.5) Neut # (Auto) 3.1 # k/uL # k/uL (1.4-7.7) Lymph # (Auto) 1.3 # k/uL # k/uL (0.6-4.0) [place] # (Auto) 0.3 # k/uL # k/uL (0.0-0.9) Eos # (Auto) 0.3 # k/uL # k/uL (0.0-0.6) Baso # (Auto) 0.0 # k/uL # k/uL (0.0-0.5) Reactive Lymphs % 2.4 % % (0.0-5.0) Reactive Lymphs # 0.1 # k/uL # k/uL (0.0-0.8) - Radiology Radiology Impressions: cxr clear of infiltrate - Orders Orders: ED Orders Category Date Time Status CHEST P.A.&LAT 2 VIEWS [RAD] Stat Exams 06/22/17 Ordered CBC/PLATELET/DIFF Routine Lab 06/22/17 11:10 Completed Lidocaine 1% 5ml(IM or SUTURE) [Xylocaine] Med 06/22/17 12:25 Discontinued 50 mg IJ NOW ONE cefTRIAXone SODIUM [Rocephin] Med 06/22/17 13:00 Ordered 1 gm IM QD Upper Respiratory Symptoms - EXAM General Appearance: no acute distress, alert EENT: eyes nml inspection, nml ENT inspection, lids & conjunct. nml, PERRL, ear nml, nose nml, pharynx nml, airway nml Neck: normal inspection, thyroid normal, supple Respiratory: no resp. distress, breath sounds nml, no pain on inspiration, speaks full sentences Abdomen: non-tender, no organomegaly, nml bowel sounds, no distention CVS: reg rate & rhythm, heart sounds normal, equal pulses, no murmur, no gallop , PMI nml, no JVD Skin: color nml, no rash, warm,dry Extremities: non-tender, normal range of motion Neuro/Psych: oriented x3, neuro intact, mood/affect nml Discharge Clincal Impression: Bronchitis Referrals: Ambrose Zelaya MD [Primary Care Provider] - 2 Days Comments: Discharged in stable condition with prescriptions for Keflex 500 mg #28 2 p.o. bid and Phenergan DM 2 tsp p.o. qid prn cough. Condition: Stable Disposition: 01 HOME, SELF-CARE Decision to Admit: NO Decision Time: 12:31
[2017-06-22] MEDS: cefTRIAXone SODIUM 1 GM VIAL IM SCH (12:35)
[2017-06-22] MEDS: Lidocaine 1% 5ml(IM or SUTURE)(PAIN CLINIC) IJ ONE (12:35)
[2017-06-22] MEDS ORDERED: cefTRIAXone SODIUM 1 GM VIAL ONE (12:38)
[2017-06-22 12:46] VITALS: BP 120/68
--- NOTE | 2017-06-22 19:29 | Diagnostic Imaging Report ---
SALOME ORTEGA [facility] [address] [address] Report Submission Date: Jun 22, 2017 12:09:00 PM FREIGHT ELEVATOR ERECTOR Patient Study Name: ROSETTA MACKEY Date: Jun 22, 2017 11:36:04 AM FREIGHT ELEVATOR ERECTOR Modality Type: CR Gender: M Description: CHEST : 54 Institution: [facility] Physician: SALMOE ORTEGA PA and lateral chest CLINICAL HISTORY: Cough for 1 week. FINDINGS: Examination of the chest in PA and lateral views with no prior film for comparison demonstrates the lungs to be clear. Cardiac silhouette is within normal limits. The bony thorax is intact. IMPRESSION: No active disease. Electronically signed on Jun 22, 2017 12:09:00 PM FREIGHT ELEVATOR ERECTOR by: Herbert ARAUJO
== END 2017-06-22 12:45 | disposition home or self-care (01) ==
LOC: ED 10:16
DX: J40 Bronchitis, not specified as acute or chronic (principal)
CPT/HCPCS: 36415; 71020; 85025; J0696; 71046; 96372; 99283

== ENCOUNTER 2017-07-13 08:27 | Outpatient (CLI) | payer MEDICARE, OTHER | END 2017-07-13 08:30 | LOC: LAB 08:27 | PROVIDERS: ATTEND Psychiatry & Neurology Psychiatry | DX: Z79.899 Other long term (current) drug therapy (principal) | CPT/HCPCS: 36415; 80061; 83036 ==

== ENCOUNTER 2017-11-26 08:34 | Day surgery (SDC) | payer MEDICARE, OTHER ==
--- NOTE | 2017-11-26 15:33 | GI Report ---
REFERRING PHYSICIAN: Dr. Ambrose Zelaya TECHNICAL PROJECT MANAGER: Lazaro Hawkins MD PROCEDURE MEDICATION: Propofol as per anesthesia. INDICATIONS: This 67-year-old man has got a number of medical issues. He has had a stroke in the past. He does still chew tobacco. He denies any changes in bowel habits. He is referred for a screening colonoscopy. His father had cancer in the liver and not sure of the primary. PROCEDURE PERFORMED: Colonoscopy and polypectomy. PROCEDURE: An Olympus video colonoscope was advanced into the rectum and slowly advanced to the cecum. The appendiceal orifice and ileocecal valve were normal. The ascending colon and cecum were normal. In the mid-transverse colon, patient had a 3 to 4 mm flat polyp removed with a cold snare. The main part of the descending colon and sigmoid colon with some redundancy. No obvious intraluminal lesions noted. Retroflexion of the rectum was normal. Patient tolerated the procedure well. FINDINGS: Mid-transverse colon polyp removed. RECOMMENDATIONS: 1. A high-fiber diet. 2. Pending the pathology of the polyp, consider re-looking at his colon again in 5 years. cc: Dr. Ambrose ARAUJO
== END 2017-11-26 08:35 ==
LOC: OPSURG 08:34
PROVIDERS: ATTEND Internal Medicine Gastroenterology
DX: Z12.11 Encounter for screening for malignant neoplasm of colon (principal); K63.5 Polyp of colon; D12.3 Benign neoplasm of transverse colon; F17.220 Nicotine dependence, chewing tobacco, uncomplicated; Z80.8 Family history of malignant neoplasm of other organs or systems
CPT/HCPCS: J2001; J2704; J7120; 45385; S1016

== ENCOUNTER 2018-03-29 09:38 | Outpatient (CLI) | payer MEDICARE, OTHER ==
--- NOTE | 2018-03-29 18:49 | Diagnostic Imaging Report ---
MIKE HARRIS [facility] [address] [facility] [address] [place] [address]. [address] Report Submission Date: Mar 29, 2018 10:14:44 AM PRINCIPAL TECHNICAL SPECIALIST Patient Study Name: ROSETTA MACKEY Date: Mar 29, 2018 9:38:56 AM PRINCIPAL TECHNICAL SPECIALIST Modality Type: DX Gender: M Description: PELVIS : 54 Institution: [facility] Physician: MIKE HARRIS Examination: Plain film right hip History: RT HIP, PAIN IN RT HIP X2-3 WEEKS IN GROIN AREA AND LATERAL HIP. PT STATES RT HIP SURGERY THIS YEAR IN [place] (Hx) Comparison exams: None provided Findings: 2 views of the right hip demonstrates prosthetic device in place. No fracture no dislocation. No soft tissue abnormality. Vascular calcifications. Impression: Hip prosthesis. No acute appearing osseous abnormality. Electronically signed on Mar 29, 2018 10:14:44 AM PRINCIPAL TECHNICAL SPECIALIST by: Mark ARAUJO
== END 2018-03-29 09:43 | disposition home or self-care (01) ==
LOC: RAD 09:38
PROVIDERS: ATTEND Family Medicine
DX: M25.551 Pain in right hip (principal)
CPT/HCPCS: 73502

== ENCOUNTER 2018-04-12 13:19 | Outpatient (CLI) | payer MEDICARE, OTHER ==
--- NOTE | 2018-04-13 05:02 | Diagnostic Imaging Report ---
ABNER KRISHNAMURTHY [facility] [address] [facility] [address] Report Submission Date: Apr 12, 2018 2:59:54 PM MERCHANDISE FLOW TEAM MEMBER Patient Study Name: ROSETTA MACKEY Date: Apr 12, 2018 1:20:54 PM MERCHANDISE FLOW TEAM MEMBER Modality Type: DX Gender: M Description: PELVIS : 54 Institution: [facility] Physician: ABNER KRISHNAMURTHY Right hip History: Hip pain AP and frogleg lateral projections of the right hip demonstrate the presence of a total right hip replacement. Phleboliths are present in the right hemipelvis. There are no findings to suggest loosening of the prosthetic device. No acute osseous abnormalities are noted. Impression: Total right hip replacement. No findings to suggest loosening of prosthesis. No acute osseous abnormality Atherosclerotic calcifications of the femoral artery are present. Electronically signed on Apr 12, 2018 2:59:54 PM MERCHANDISE FLOW TEAM MEMBER by: Paulina ARAUJO
== END 2018-04-12 13:20 ==
LOC: RAD 13:19
PROVIDERS: ATTEND Family Medicine
DX: M25.551 Pain in right hip (principal); Z96.641 Presence of right artificial hip joint; I70.8 Atherosclerosis of other arteries
CPT/HCPCS: 73502

== ENCOUNTER 2018-09-18 09:58 | Inpatient (IN) | payer MEDICARE, OTHER ==
--- NOTE | 2018-09-18 10:18 | ED Physician Documentation ---
General Adult - HISTORIAN Historian: patient - HPI Stated Complaint: short on air Chief Complaint: Dyspnea Onset: hours (2) Timing: better Severity: mild Further Comments: yes (He states last night he was noticing he had some shortness of breath - last night he had shortness of air in middle of night. Denies a fever. He denies pain to me but after discussion did tell the nurse he had some chest pain that was quick and sharp this am. No other complaints. He was transferred out late last week for abnormal heart rhythm and he states he was told everything was fine.) - ROS CONST: no problems EYES/ENT: none CVS/RESP: shortness of breath. denies: cough MS/SKIN/LYMPH: none NEURO/PSYCH: denies: headache, fainting, dizziness, tingling, numbness, anxiety - PAST HX Past History: hypertension Immunizations: UTD Allergies/Adverse Reactions: Allergies Allergy/AdvReac Type Severity Reaction Status Date / Time No Known Drug Allergies Allergy Verified 09/18/18 10:34 Home Medications: Ambulatory Orders Medication Instructions Recorded Amantadine HCl [Amantadine] 100 mg PO BID 09/13/18 Lamotrigine [Lamictal] 100 mg PO BID 09/13/18 amLODIPine BESYLATE [Norvasc] 5 mg PO DAILY 09/18/18 - SOCIAL HX Smoking History: non-smoker Alcohol Use: none Drug Use: none - FAMILY HX Family History: No - VITAL SIGNS Vital Signs: Vital Signs Temp Pulse Resp BP Pulse Ox 147/71 09/13/18 14:13 - REVIEWED ASSESSMENTS Nursing Assessment Reviewed: Yes Vitals Reviewed: Yes Progress - Progress Progress: 1100: Resting quietly in the room - He has no complaints currently DG 1220: he is asking for lunch. No pain complaints. No current shortness of air. DG . 1300: Nurse attempted to remove oxygen and with any activity his oxygen sat did drop to 85% he did complain of increased shortness of air and felt more tight DG 1310: Discussed case with Dr Zelaya and he is agreeable to admission DG ED Results Lab/Radiology - Radiology Radiology Impressions: Examination: Portable chest History: Evaluate lungs Comparison exam: 22 June 2017 Findings: Single view of the chest demonstrates a normal cardiac and mediastinal silhouette. Mildly tortuous aorta. Chronic interstitial changes. Lung foster without focal infiltrate. No blunting of the costophrenic margins. Stable granuloma. Articular degenerative changes. Impression: Chronic interstitial changes. No acute appearing pulmonary process. Electronically signed on September 18, 2018 10:48:27 AM CDT by: Mark Saini Examination: CT chest pulmonary embolism History: CHEST PAIN AND SOA TODAY Comparison exam: Plain film dated 18 Sep 2018 Technique: CT chest pulmonic pulmonary embolism protocol. Findings: No evidence for luminal filling defect within the main pulmonary arteries to the 3rd order branch vessels bilaterally. Thoracic aorta without aneurysmal dilation. No evidence for dissection flap. Peripheral atherosclerotic disease. Lungs demonstrate emphysematous changes and dependent atelectasis bilaterally. No evidence for posterior pleural effusion or thickening. No med iastinal or madelin mass or pathologic adenopathy. Cardiac silhouette not enlarged. No pericardial effusion. Osseous structures demonstrate degenerative changes. Lower neck structures, axilla regions, and upper abdominal organs are without gross irregularity. Impression: No evidence for pulmonary embolism by CT criteria. No evidence for thoracic aortic dissection or abnormality. Lung base scarring and atelectasis. No focal consolidative process or effusion. Electronically signed on September 18, 2018 12:11:56 PM CDT by: Mark Saini General Adult Physical Exam - PHYSICAL EXAM GENERAL APPEARANCE: no distress EENT: eye inspection normal, pharynx normal, no signs of dehydration NECK: normal inspection RESPIRATORY: no resp distress, chest non-tender, other (work to breathe with talking or moving ) CVS: reg rate & rhythm, heart sounds normal, equal pulses, no murmur ABDOMEN: soft, normal bowel sounds, no distension BACK: normal inspection, no CVA tenderness SKIN: warm/dry EXTREMITIES: non-tender, normal range of motion, no evidence of injury, no edema NEURO: oriented X3 Discharge Clincal Impression: Emphysema lung Qualifiers: Emphysema type: unspecified Qualified Code(s): J43.9 - Emphysema, unspecified Referrals: Ambrose Zelaya MD [Primary Care Provider] - 2 Days Condition: Fair Disposition: ADMITTED INPATIENT Decision to Admit: [id number] Date of Decison to Admit: 09/18/18 Decision Time: 13:49
[2018-09-18] MEDS ORDERED: IPRATROPIUM/ALBUTEROL SULFATE 3 ML AMPUL.NEB NEB ONE (10:22)
[2018-09-18 10:46] LABS: eGFR (Non-African) > 60
[2018-09-18 10:52] LABS: ANISOCYTOSIS 1+ (NEGATIVE); BASOPHILS % 3 % (0-2); SEGMENTED NEUTROPHILS % 43 % (39-79)
[2018-09-18] MEDS ORDERED: 0.9 % SODIUM CHLORIDE 1,000 ML IV ONE (13:42)
[2018-09-18] MEDS ORDERED: methylPREDNISolone SOD SUCC 125 MG/2 ML VIAL IVP ONE (13:42)
[2018-09-18] MEDS ORDERED: AZITHROMYCIN 500 MG in 0.9 % SODIUM CHLORIDE 250 ML IV ONE (13:49)
[2018-09-18] MEDS: BUDESONIDE 0.5MG/2ML AMPUL.NEB NEB SCH ×2 (13:59→20:21)
[2018-09-18] MEDS ORDERED: cefTRIAXone SODIUM 1 GM in 0.9 % SODIUM CHLORIDE 50 ML IV ONE (14:17)
[2018-09-18 14:50] VITALS: BMI 26.9
[2018-09-18] MEDS: ENOXAPARIN SODIUM 40 MG/0.4 ML DISP.SYRIN SQ SCH (16:05)
[2018-09-18] MEDS: IPRATROPIUM/ALBUTEROL SULFATE 3 ML AMPUL.NEB NEB SCH ×3 (16:06→20:23)
--- NOTE | 2018-09-18 17:24 | History and Physical Report ---
History of Present Illnes - History of Present Illness Reason for Visit: Bronchitis/hypoxia History of Present Illness: Ivan is seen today in the ER due to shortness of breath and near syncope. He has been coughing but no bringing much up. He is an on smoker, but an avid fan of smokeless tobacco. He had a CT chest with contrast in the ER which showed no PE, but did show some atelectasis or pneumonia in the right base. His pulse oximetry while ambulating in the ER was in the 70s. He is admitted for treatment of pneumonia. - Past Medical History [employer] MANAGER: Other (Parkinson's disease) Psych: Bipolar Musculoskeletal: Chronic low back pain Endocrine: Hyperthyroidism. denies: Diabetes - Past Surgical History Past Surgical History: Total Hip Replacement (Right) - Past Social History Smoke: No Occupation: Disabled Alcohol: Occassional Drugs: None Lives: With Family () Domestic Violence: Negative - Health Maintenance Health Maintenance: Cholesterol Pneumonia Vaccine: Yes Resuscitation Status: Resusciation Status Resuscitation Status Full Code - Unable to Obtain History Unable to Obtain: No Review of Systems - Review of Systems Constitutional: Fever Eyes: negative: pain ENT: negative: Ear Pain Respiratory: Cough, Shortness of Breath, Wheezing Cardiovascular: negative: Chest Pain Gastrointestinal: negative: Nausea, Vomiting Genitourinary: negative: Dysuria Musculoskeletal: negative: Neck Pain Skin: negative: Rash Neurological: Weakness - Medications/Allergies Allergies/Adverse Reactions: Allergies Allergy/AdvReac Type Severity Reaction Status Date / Time No Known Drug Allergies Allergy Verified 09/18/18 10:34 Home Medications: Home Medications amLODIPine BESYLATE [Norvasc] 5 mg PO DAILY 09/18/18 Current Inpatient Medications: Current Inpatient Medications Albuterol/Ipratropium (Duoneb) 3 ml NEB Q4 [facility] Last Admin: 09/18/18 16:37 Dose: Not Given Amlodipine Besylate (Norvasc) 5 mg PO DAILY [facility] Atorvastatin Calcium (Lipitor) 20 mg PO DAILY [facility] Budesonide (Pulmicort) 0.5 mg NEB BID [facility] Last Admin: 09/18/18 13:59 Dose: 0.5 mg Duloxetine HCl (Cymbalta) 60 mg PO BID [facility] Enoxaparin Sodium (Lovenox) 40 mg SQ DAILY [facility] Stop: 10/02/18 14:59 Last Admin: 09/18/18 16:05 Dose: 40 mg Sodium Chloride (Normal Saline) 1,000 mls @ 100 mls/hr IV Q10H [facility] Azithromycin 500 mg/ Sodium (Chloride) 250 mls @ 250 mls/hr IV Q24H [facility] Stop: 09/29/18 14:59 Ceftriaxone Sodium 1 gm/ (Sodium Chloride) 50 mls @ 100 mls/hr IV DAILY [facility] Lamotrigine (Lamictal) 100 mg PO BID [facility] Lurasidone HCl (Latuda (Nf)) 40 mg PO DAILY [facility] Methylprednisolone Sodium Succinate (Solu-Medrol) 60 mg IVP Q12 [facility] Miscellaneous (Patient Own Med) 1 each PO BID [facility] Primidone (Mysoline) 50 mg PO BID [facility] Tiotropium [place] (Spiriva) 1 inh IH DAILY [facility] Exam - Exam Vital Signs: Vital Signs (72 hours) 09/18/18 09/18/18 09/18/18 10:00 10:17 11:17 Temperature Pulse Rate [ Left Pulse ox] Pulse Rate [ 61 Right Pulse ox] Respiratory 10 L Rate Blood Pressure [Left Arm] Blood Pressure 151/83 [Right Arm] O2 Sat by Pulse 93 96 99 Oximetry 09/18/18 09/18/18 09/18/18 12:00 13:00 14:00 Temperature Pulse Rate [ Left Pulse ox] Pulse Rate [ Right Pulse ox] Respiratory Rate Blood Pressure [Left Arm] Blood Pressure [Right Arm] O2 Sat by Pulse 98 85 L 98 Oximetry 09/18/18 09/18/18 09/18/18 14:20 14:36 14:47 Temperature 97.1 F L 97.1 F L Pulse Rate [ 54 L 60 60 Left Pulse ox] Pulse Rate [ Right Pulse ox] Respiratory 22 20 20 Rate Blood Pressure 130/67 143/83 143/83 [Left Arm] Blood Pressure [Right Arm] O2 Sat by Pulse 100 100 100 Oximetry General: Alert, Oriented to Person, Oriented to Place HEENT: Atraumatic, PERRLA, Poor Dentition, Other (chewing tobacco in mouth) Neck: No: Stridor Lungs: Wheezes, Prolonged Expiration, Decreased Air Movement Cardiovascular: Regular rate Murmur: No: Systolic Murmur Abdomen: Normal bowel sounds, Soft, No tenderness Genitourinary: No: Other Male Genitourinary: No: Other Female Genitourinary: No: Other Integumentary: Normal, [place] Extremities: No clubbing, No cyanosis, No edema Neurological: Normal speech Psych/Mental Status: Mental status NL - Laboratory Results Laboratory Results: Laboratory Results 09/18/18 09/18/18 09/18/18 10:20 10:20 10:25 WBC 6.80 RBC 4.52 Hgb 14.6 Hct 42.9 MCV 95.0 MCH 32.4 MCHC 34.1 RDW 12.6 Plt Count 257 Seg Neutrophils % 43 Band Neutrophils % 1 Lymphocytes % 37 Monocytes % 5 Eosinophils % 11 H Basophils % 3 H Poikilocytosis 1+ H Anisocytosis 1+ H PT INR D-Dimer Sodium Potassium Chloride Carbon Dioxide BUN Creatinine Est GFR ( Amer) Est GFR (Non-Af Amer) Glucose Calcium Total Bilirubin AST ALT Alkaline Phosphatase Troponin I < 0.012 L NT-Pro-B Natriuret Pep 83.9 Total Protein Albumin 09/18/18 09/18/18 09/18/18 10:25 10:25 10:25 WBC RBC Hgb Hct MCV MCH MCHC RDW Plt Count Seg Neutrophils % Band Neutrophils % Lymphocytes % Monocytes % Eosinophils % Basophils % Poikilocytosis Anisocytosis PT 9.9 INR 0.95 D-Dimer 545 Sodium 138 Potassium 4.2 Chloride 103 Carbon Dioxide 28 BUN 13 Creatinine 1.02 Est GFR ( Amer) > 60 Est GFR (Non-Af Amer) > 60 Glucose 108 H Calcium 9.5 Total Bilirubin 0.5 AST 42 ALT 49 Alkaline Phosphatase 154 H Troponin I NT-Pro-B Natriuret Pep Total Protein 7.7 Albumin 4.4 Assessment/Plan - Assessment/Plan (1) Pneumonia Status: Acute Current Visit: Yes Qualifiers: Aspiration pneumonia type: unspecified Laterality: right Lung location: lower lobe of lung Assessment: Continue Rocephin and Azithromycin Supplemental oxygen Nebulizer treatments (2) Parkinsons disease Status: Acute Current Visit: Yes Assessment: Continue amantadine and primidone VTE Assessment - RISK FACTOR SCORE VTE RISK FACTOR SCORES: AGE OVER 60 YEARS, ACUTE INFECTION OTHER THEN SEPSIS - RISK VTE MODERATE RISK: SCORE OF 2 (RISK PROXIMAL DVT 2-4%) PROPHYAXIS NEEDED (On Lovenox)
[2018-09-18] MEDS: 0.9 % SODIUM CHLORIDE 1,000 ML IV SCH (19:00)
[2018-09-18] MEDS: PRIMIDONE 50 MG TABLET PO SCH (20:16)
[2018-09-18] MEDS: lamoTRIgine 100 MG TABLET PO SCH (20:17)
[2018-09-18] MEDS: DULoxetine HCL 30 MG CAPSULE.DR PO SCH (20:17)
[2018-09-18] MEDS: methylPREDNISolone SOD SUCC 40 MG/ML VIAL IVP SCH (20:18)
[2018-09-18] MEDS ORDERED: PATIENT OWN MED 1 EACH EACH PO SCH (21:00)
--- NOTE | 2018-09-18 23:33 | Diagnostic Imaging Report ---
OSCAR SIMPSON [facility] [address] [facility] [address] [place], [place]. [address] Report Submission Date: September 18, 2018 10:48:27 AM CDT Patient Study Name: ROSETTA MACKEY Date: September 18, 2018 10:20:49 AM CDT Modality Type: DX Gender: M Description: CHEST 1VIEW : 54 Institution: [facility] Physician: OSCAR BUTLER Examination: Portable chest History: Evaluate lungs Comparison exam: 22 June 2017 Findings: Single view of the chest demonstrates a normal cardiac and mediastinal silhouette. Mildly tortuous aorta. Chronic interstitial changes. Lung foster without focal infiltrate. No blunting of the costophrenic margins. Stable granuloma. Articular degenerative changes. Impression: Chronic interstitial changes. No acute appearing pulmonary process. Electronically signed on September 18, 2018 10:48:27 AM CDT by: Mark ARAUJO
--- NOTE | 2018-09-18 23:33 | Diagnostic Imaging Report ---
OSCAR BUTLER [facility] [address] [facility] [address] [place], [place]. [address] Report Submission Date: September 18, 2018 12:11:56 PM CDT Patient Study Name: ROSETTA MACKEY Date: September 18, 2018 11:17:36 AM CDT Modality Type: CT\SR Gender: M Description: CT PE CHEST : 54 Institution: [facility] Physician: OSCAR BUTLER Examination: CT chest pulmonary embolism History: CHEST PAIN AND SOA TODAY Comparison exam: Plain film dated 18 Sep 2018 Technique: CT chest pulmonic pulmonary embolism protocol. Findings: No evidence for luminal filling defect within the main pulmonary arteries to the 3rd order branch vessels bilaterally. Thoracic aorta without aneurysmal dilation. No evidence for dissection flap. Peripheral atherosclerotic disease. Lungs demonstrate emphysematous changes and dependent atelectasis bilaterally. No evidence for posterior pleural effusion or thickening. No mediastinal or madelin mass or pathologic adenopathy. Cardiac silhouette not enlarged. No pericardial effusion. Osseous structures demonstrate degenerative changes. Lower neck structures, axilla regions, and upper abdominal organs are without gross irregularity. Impression: No evidence for pulmonary embolism by CT criteria. No evidence for thoracic aortic dissection or abnormality. Lung base scarring and atelectasis. No focal consolidative process or effusion. Electronically signed on September 18, 2018 12:11:56 PM CDT by: Mark ARAUJO
[2018-09-19] MEDS: 0.9 % SODIUM CHLORIDE 1,000 ML IV SCH ×4 (00:03→22:56)
[2018-09-19] MEDS ORDERED: NITROGLYCERIN 0.4 MG TAB.SUBL SL ONE (00:45)
[2018-09-19] MEDS: IPRATROPIUM/ALBUTEROL SULFATE 3 ML AMPUL.NEB NEB SCH ×5 (05:37→17:36)
[2018-09-19 06:37] LABS: BASOPHILS % 0.2 % (0.0-1.5)
[2018-09-19 06:38] LABS: NEUTROPHILS # 8.5 # k/uL (1.4-7.7)
[2018-09-19 06:40] LABS: eGFR (Non-African) > 60
[2018-09-19] MEDS: ENOXAPARIN SODIUM 40 MG/0.4 ML DISP.SYRIN SQ SCH (08:06)
[2018-09-19] MEDS: lamoTRIgine 100 MG TABLET PO SCH ×2 (08:07→22:57)
[2018-09-19] MEDS: PRIMIDONE 50 MG TABLET PO SCH ×2 (08:07→22:56)
[2018-09-19] MEDS: DULoxetine HCL 30 MG CAPSULE.DR PO SCH ×2 (08:07→22:57)
[2018-09-19] MEDS: ATORVASTATIN CALCIUM 20 MG TABLET PO SCH (08:08)
[2018-09-19] MEDS: amLODIPine BESYLATE 5 MG TABLET PO SCH (08:08)
[2018-09-19] MEDS: LURASIDONE HCL (NF) 40 MG TABLET PO SCH (08:08)
[2018-09-19] MEDS: methylPREDNISolone SOD SUCC 40 MG/ML VIAL IVP SCH ×2 (08:13→22:57)
[2018-09-19] MEDS: cefTRIAXone SODIUM 1 GM in 0.9 % SODIUM CHLORIDE 50 ML IV SCH (08:15)
[2018-09-19] MEDS: TIOTROPIUM BROMIDE INHALER IH SCH (08:19)
[2018-09-19] MEDS: BUDESONIDE 0.5MG/2ML AMPUL.NEB NEB SCH ×2 (08:25→22:30)
--- NOTE | 2018-09-19 08:40 | Inpatient Progress Note ---
Subjective - Required Recertification Statement I anticipate X number of days because-include discharge plan: 1 - Review of Systems Events since last encounter: Ivan has had some chest pain over the course of the evening. He has not had any changes in his EKG, and his troponins have remained at <0.12. He ate well today. He is still on oxygen, so will try to taper that today with plans for getting him home in the morning. General: Denies: Chills, Night Sweats HEENT: Denies: Head Aches Pulmonary: Dyspnea, Cough Cardiovascular: Chest Pain (precordial) Gastrointestinal: Denies: Nausea, Vomiting Genitourinary: Denies: Dysuria, Frequency Musculoskeletal: Denies: Neck Pain Neurological: Denies: Weakness, Change in Speech Objective - Exam Vitals and I&O: Vital Signs Temp 98.5 F 09/19/18 08:21 Pulse 111 H 09/19/18 08:21 Resp 20 09/19/18 08:21 BP 158/97 09/19/18 08:21 Pulse Ox 100 09/19/18 08:29 Intake & Output 09/18/18 09/18/18 09/19/18 11:59 23:59 11:59 Intake Total 460 1160 Output Total 1250 Balance 460 -90 Weight 79 kg 82.554 kg Intake: IV 100 100 Right AC space 100 100 Oral 360 1060 Output: Urine 1250 Other: Voiding Method Urinal Urinal # Voids 2 General: Alert, Oriented to Person, Oriented to Place, Oriented to Time, Cooperative, Mild distress (due to chest pain) HEENT: Atraumatic, PERRLA, Poor Dentition Lungs: Clear to auscultation, Wheezes, Prolonged Expiration Cardiovascular: Regular rate Abdomen: Normal bowel sounds, Soft, No tenderness Extremities: No clubbing, No cyanosis, No edema Skin: Normal, [place] Neurological: Normal speech Psych/Mental Status: Mental status NL - Results Results: Laboratory Results WBC 9.90 K/ul (4.00-12.00) 09/19/18 00:45 RBC 4.51 M/ul (3.90-5.20) 09/19/18 00:45 Hgb 14.6 g/dL (12.0-18.0) 09/19/18 00:45 Hct 42.8 % (37.0-53.0) 09/19/18 00:45 MCV 95.0 fl (80.0-100.0) 09/19/18 00:45 MCH 32.5 pg (28.0-34.0) 09/19/18 00:45 MCHC 34.2 g/dL (30.0-36.0) 09/19/18 00:45 RDW 13.2 % (11.3-14.3) 09/19/18 00:45 Plt Count 253 K/mm3 (130-400) 09/19/18 00:45 Neut % (Auto) 85.6 % (39.0-79.0) H 09/19/18 00:45 Lymph % (Auto) 11.7 % (16.0-50.0) L 09/19/18 00:45 [place] % (Auto) 1.3 % (0.0-11.0) 09/19/18 00:45 Eos % (Auto) 1.2 % (0.0-6.8) 09/19/18 00:45 Baso % (Auto) 0.2 % (0.0-1.5) 09/19/18 00:45 Neut # (Auto) 8.5 # k/uL (1.4-7.7) H 09/19/18 00:45 Lymph # (Auto) 1.2 # k/uL (0.6-4.0) 09/19/18 00:45 [place] # (Auto) 0.1 # k/uL (0.0-0.9) 09/19/18 00:45 Eos # (Auto) 0.1 # k/uL (0.0-0.6) 09/19/18 00:45 Baso # (Auto) 0.0 # k/uL (0.0-0.5) 09/19/18 00:45 Seg Neutrophils % 43 % (39-79) 09/18/18 10:25 Band Neutrophils % 1 % (0-12) 09/18/18 10:25 Lymphocytes % 37 % (16-50) 09/18/18 10:25 Monocytes % 5 % (0-11) 09/18/18 10:25 Eosinophils % 11 % (0-7) H 09/18/18 10:25 Basophils % 3 % (0-2) H 09/18/18 10:25 Poikilocytosis 1+ (NEGATIVE) H 09/18/18 10:25 Anisocytosis 1+ (NEGATIVE) H 09/18/18 10:25 PT 9.9 Seconds (8.8-11.9) 09/18/18 10:25 INR 0.95 (0.80-1.10) 09/18/18 10:25 D-Dimer 545 ng/mL (6.0-682) 09/18/18 10:25 Sodium 136 mmol/L (137-145) L 09/19/18 00:30 Potassium 3.8 mmol/L (3.5-5.1) 09/19/18 00:30 Chloride 104 mmol/L (98-107) 09/19/18 00:30 Carbon Dioxide 23 mmol/L (22-30) 09/19/18 00:30 BUN 15 mg/dL (9-20) 09/19/18 00:30 Creatinine 0.90 mg/dL (0.66-1.25) 09/19/18 00:30 Estimated Creat Clear 95 09/19/18 00:30 Est GFR ( Amer) > 60 (60-) 09/19/18 00:30 Est GFR (Non-Af Amer) > 60 (60-) 09/19/18 00:30 Glucose 156 mg/dL (74-106) H 09/19/18 00:30 Calcium 9.6 mg/dL (8.4-10.2) 09/19/18 00:30 Total Bilirubin 0.4 mg/dL (0.2-1.3) 09/19/18 00:30 AST 24 U/L (15-46) 09/19/18 00:30 ALT 39 U/L (0-50) 09/19/18 00:30 Alkaline Phosphatase 123 U/L (38-126) 09/19/18 00:30 Troponin I < 0.012 ng/mL (0.012-0.034) L 09/19/18 00:30 NT-Pro-B Natriuret Pep 83.9 pg/mL (11.1-125.0) 09/18/18 10:20 Total Protein 7.2 g/dL (6.3-8.2) 09/19/18 00:30 Albumin 4.1 g/dL (3.5-5.0) 09/19/18 00:30 Assessment/Plan - Assessment/Plan (1) Pneumonia Status: Acute Current Visit: Yes Qualifiers: Aspiration pneumonia type: unspecified Laterality: right Lung location: lower lobe of lung Assessment: Continue current antibiotics Wean oxygen [place] for d/c in the morning. (2) Parkinsons disease Status: Acute Current Visit: Yes Assessment: Continue amantadine and primidone
[2018-09-19] MEDS: AMANTADINE HCL 100 MG PO SCH ×2 (09:28→22:56)
[2018-09-19] MEDS ORDERED: AZITHROMYCIN 500 MG in 0.9 % SODIUM CHLORIDE 250 ML IV SCH (15:00)
--- NOTE | 2018-09-19 15:03 | Diagnostic Imaging Report ---
<p>Your browser does not support iframes.</p> OSCAR BUTLER [facility] [address] [facility] [address] [place] [address]. [id number] Report Submission Date: September 19, 2018 7:15:26 AM CDT Patient Study Name: ROSETTA MACKEY Date: September 19, 2018 6:58:58 AM CDT Modality Type: DX Gender: M Description: CHEST 2VIEW : 54 Institution: [facility] Physician: OSCAR BUTLER HISTORY: 67-year-old male with swelling and ankles, cough. COMPARISON: Chest x-ray dated 09/18/2018. TECHNIQUE: 2 views of the chest were performed. FINDINGS: No pneumothorax, consolidative infiltrates, pleural effusions, or pulmonary edema. Right lower lung calcified granuloma is re-identified. The heart is not enlarged. There is mild thoracic degenerative disc disease. IMPRESSION: Old granulomatous disease of the chest without evidence of acute intrathoracic process. Electronically signed on September 19, 2018 7:15:26 AM CDT by: Juan Manuel ARAUJO
[2018-09-20] MEDS: IPRATROPIUM/ALBUTEROL SULFATE 3 ML AMPUL.NEB NEB SCH ×4 (03:10→08:08)
[2018-09-20] MEDS: BUDESONIDE 0.5MG/2ML AMPUL.NEB NEB SCH (08:08)
[2018-09-20] MEDS: methylPREDNISolone SOD SUCC 40 MG/ML VIAL IVP SCH (08:17)
[2018-09-20] MEDS: ENOXAPARIN SODIUM 40 MG/0.4 ML DISP.SYRIN SQ SCH (08:21)
[2018-09-20] MEDS: lamoTRIgine 100 MG TABLET PO SCH (08:22)
[2018-09-20] MEDS: AMANTADINE HCL 100 MG PO SCH (08:22)
[2018-09-20] MEDS: TIOTROPIUM BROMIDE INHALER IH SCH (08:22)
[2018-09-20] MEDS: ATORVASTATIN CALCIUM 20 MG TABLET PO SCH (08:23)
[2018-09-20] MEDS: DULoxetine HCL 30 MG CAPSULE.DR PO SCH (08:23)
[2018-09-20] MEDS: amLODIPine BESYLATE 5 MG TABLET PO SCH (08:23)
[2018-09-20] MEDS: cefTRIAXone SODIUM 1 GM in 0.9 % SODIUM CHLORIDE 50 ML IV SCH (08:28)
[2018-09-20] MEDS: PRIMIDONE 50 MG TABLET PO SCH (08:33)
[2018-09-20] MEDS: LURASIDONE HCL (NF) 40 MG TABLET PO SCH (08:33)
[2018-09-20] MEDS: 0.9 % SODIUM CHLORIDE 1,000 ML IV SCH (08:34)
--- NOTE | 2018-09-20 08:52 | Discharge Summary ---
Discharge Summary - Discharge [facility] Admission Date: 09/18/18 Discharge Date: 09/20/18 History of Present Illness: Ivan is seen today in the ER due to shortness of breath and near syncope. He has been coughing but no bringing much up. He is an on smoker, but an avid fan of smokeless tobacco. He had a CT chest with contrast in the ER which showed no PE, but did show some atelectasis or pneumonia in the right base. His pulse oximetry while ambulating in the ER was in the 70s. He was admitted for treatment of pneumonia. Condition at Discharge: Stable Home Medications: Ambulatory Orders Medication Instructions Recorded Amantadine HCl [Amantadine] 100 mg PO BID 09/13/18 Lamotrigine [Lamictal] 100 mg PO BID 09/13/18 amLODIPine BESYLATE [Norvasc] 5 mg PO DAILY 09/18/18 Consultations this Visit: None Procedures this Visit: None Allergies/Adverse Reactions: Allergies Allergy/AdvReac Type Severity Reaction Status Date / Time No Known Drug Allergies Allergy Verified 09/18/18 10:34 Patient Problems: Current Active Problems Problem Status Onset Emphysema lung Acute Parkinsons disease Acute Pneumonia Acute Hospital Course: He was admitted for IV antibiotics and supplemental oxygen. He did well and was discharged to home on 09/20/18 with plans for f/u in one week. He was continued on all of his medications as prior to admission, with the addition of ceftin 250 mg po BID which was sent to [facility].
[2018-09-20 08:55] VITALS: BP 157/86
== END 2018-09-20 10:40 | disposition home or self-care (01) | DRG 195 ==
LOC: ED 09:58 → SOUTH 13:53
PROVIDERS: ADMIT Family Medicine; ATTEND Family Medicine
DX: J18.1 Lobar pneumonia, unspecified organism (principal); G20 Parkinson's disease; I10 Essential (primary) hypertension; F31.9 Bipolar disorder, unspecified; G89.29 Other chronic pain; M54.5 Low back pain; E05.90 Thyrotoxicosis, unspecified without thyrotoxic crisis or storm; J43.9 Emphysema, unspecified; F17.220 Nicotine dependence, chewing tobacco, uncomplicated; Z79.899 Other long term (current) drug therapy; Z96.641 Presence of right artificial hip joint
CPT/HCPCS: 36600; 71045; 71046; 71275; 80053; 82803; 83880; 84484; 85025; 85379; 85610; 99284; J0456; J0696; J1650; J2920; J2930; J7050; J7626; J1030; J7030; Q9967; S1016

== ENCOUNTER 2018-11-28 09:13 | Emergency (ER) | payer MEDICARE, OTHER ==
[2018-11-28 09:26] VITALS: BP 137/75
--- NOTE | 2018-11-28 09:38 | ED Physician Documentation ---
Low Back Pain - HISTORIAN Historian: patient - HPI Stated Complaint: Back pain Chief Complaint: Low Back Pain/ Injury Additional Information: Patient presents to ED with low left sided back pain since . Patient states he woke up with the pain on . He denies any injury recently or in the past. He state walking make the pain better, laying down make the pain worse. He admit to occasional burning with urination. Onset: days ago (7) Duration: continues in ED Context: denies: fall, trauma Where: home Other Injuries: back Severity: moderate Quality: burning, sharp Associated Symptoms: denies: fever, dizziness Relieved By: upright position (walking) - ROS CONST: no problems CVS/RESP: denies: chest pain, shortness of breath EYES/ENT: none MS/SKIN/LYMPH: denies: calf pain Neuro/Psych: denies: headache GI/: denies: abdominal pain - PAST HX Past History: denies: back injury, kidney stones Surgeries/Procedures: none Allergies/Adverse Reactions: Allergies Allergy/AdvReac Type Severity Reaction Status Date / Time No Known Drug Allergies Allergy Verified 11/28/18 09:21 Home Medications: Ambulatory Orders Medication Instructions Recorded Amantadine HCl [Amantadine] 100 mg PO BID 09/13/18 Lamotrigine [Lamictal] 100 mg PO BID 09/13/18 amLODIPine BESYLATE [Norvasc] 5 mg PO DAILY 09/18/18 predniSONE [Deltasone] 10 mg PO DAILY #10 tablet 11/28/18 - SOCIAL HX Smoking History: non-smoker Alcohol Use: none Drug Use: none - FAMILY HX Family History: none - VITAL SIGNS Vital Signs: Vital Signs Temp Pulse Resp BP Pulse Ox 66 15 137/75 98 11/28/18 09:15 11/28/18 09:15 11/28/18 09:15 11/28/18 09:15 - REVIEWED ASSESSMENTS Nursing Assessment Reviewed: Yes Vitals Reviewed: Yes Progress - Results/Orders Results/Orders: UA - negative for infection or stones. ED Results Lab/Radiology - Orders Orders: ED Orders Category Date Time Status UA W MICRO [UA W/MICRO IF INDICATED] Routine Lab 11/28/18 09:20 Ordered Ketorolac Tromethamine [Toradol] Med 11/28/18 09:40 Discontinued 60 mg IM NOW ONE methylPREDNISolone SOD SUCC [SOLU-Medrol] Med 11/28/18 09:40 Discontinued 125 mg IM NOW ONE Low Back Pain/Injury - Physical Exam General Appearance: no acute distress, alert EENT: ISAEL Neck: non-tender, painless ROM. No: vertebral point-tendernes Resp/CVS: chest non-tender, breath sounds nml, heart sounds nml Abdomen: non-tender Back: muscle spasm (over left posterior iliac crest ). No: vertebral point- tendernes, CVA tenderness Straight Leg Raising: Negative Left, Negative Right Neuro/Psych: oriented x3, motor nml, sensation nml Skin: warm/dry, normal color Extremities: non-tender, normal range of motion, no evidence of injury Discharge Clincal Impression: Low back pain Qualifiers: Chronicity: acute Back pain laterality: left Sciatica presence: without sciatica Qualified Code(s): M54.5 - Low back pain Prescriptions: predniSONE [Deltasone] 10 mg PO DAILY #10 tablet Referrals: Ambrose Zelaya MD [Primary Care Provider] - 2 Days Additional Instructions: 1. Start Prednisone taper tomorrow 11/29/18 2. Stay active 3. Tylenol as needed for pain 4. Follow up with Dr. Zelaya within 1 week 5. Return to ER for new or worsening symptoms Comments: Unable to give muscle relaxers due to Parkinsons and home med interactions. Condition: Stable Disposition: 01 HOME, SELF-CARE Decision to Admit: NO Date of Decison to Admit: 11/28/18 Decision Time: 09:49
[2018-11-28] MEDS ORDERED: methylPREDNISolone SOD SUCC 125 MG/2 ML VIAL IM ONE (09:40)
[2018-11-28] MEDS ORDERED: KETOROLAC TROMETHAMINE 60 MG/2 ML VIAL IM ONE (09:40)
[2018-11-28 11:21] LABS: APPEARANCE,URINE CLOUDY (CLEAR); COLOR,URINE YELLOW (YELLOW); OCCULT BLOOD,URINE NEGATIVE (NEGATIVE); UROBILINOGEN URINE 0.2 Eu (0.2-1.0)
== END 2018-11-28 10:00 | disposition home or self-care (01) ==
LOC: ED 09:13
DX: M54.5 Low back pain (principal)
CPT/HCPCS: 81002; 96372; 99284; J1885; J2930